=== PATIENT | male | born 1995 | race African-American/Black ===

== ENCOUNTER 2017-12-30 18:41 | Emergency (ER) | payer SELFPAY ==
[2017-12-30 18:58] VITALS: BP 137/84
--- NOTE | 2017-12-30 19:13 | UC ---
Lower Extremity/Ankle HPI - HPI Summary HPI Summary: pt works at [employer]. He came down while playing basketball and felt pain in his R hamstring today. He dropped from pain. He has ongoing pain in his R hamstring. 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 - History of Current Complaint Chief Complaint: UCLowerExtremity Stated Complaint: RIGHT LEG (HAMSTRING) WC Time Seen by Provider: 12/30/17 19:05 Hx Obtained From: Patient Onset/Duration: Sudden Onset Pain Intensity: 9 Aggravating Factor(s): Standing, Ambulation Alleviating Factor(s): Rest Able to Bear Weight: Yes Related History: Occupational Injury - Allergies/Home Medications Allergies/Adverse Reactions: Allergies Allergy/AdvReac Type Severity Reaction Status Date / Time No Known Allergies Allergy Verified 07/15/15 11:26 Home Medications: Home Medications Aspirin/Acetaminophen/Caffeine [Excedrin Extra Strength Caplet] 5 each PO ONCE PRN 12/30/17 [History Confirmed 12/30/17] PMH/Surg Hx/FS Hx/Imm Hx Previously Healthy: Yes - Surgical History Surgical History: Yes Surgery Procedure, Year, and Place: abdominal hernia 1999 - Social History Occupation: Employed Full-time Alcohol Use: Occasionally Alcohol Amount: 10 Substance Use Type: Marijuana Substance Use Comment - Amount & Last Used: 07/14/15 Smoking Status (MU): Never Smoked Tobacco - Immunization History Vaccination Up to Date: Yes Review of Systems Constitutional: Negative Skin: Negative Eyes: Negative ENT: Negative Respiratory: Negative Cardiovascular: Negative Gastrointestinal: Negative Genitourinary: Negative Motor: Negative Neurovascular: Negative Musculoskeletal: Other: - Pain R hamstring Neurological: Negative Psychological: Negative Is Patient Immunocompromised?: No All Other Systems Reviewed And Are Negative: Yes Physical Exam Triage Information Reviewed: Yes Appearance: Well-Appearing Vital Signs: Initial Vital Signs Temp 97.7 F 12/30/17 18:53 Pulse 86 12/30/17 18:53 Resp 22 12/30/17 18:53 BP 137/84 12/30/17 18:53 Pulse Ox 100 12/30/17 18:53 Vital Signs Reviewed: Yes Eyes: Positive: Conjunctiva Clear ENT: Positive: Normal ENT inspection Neck: Positive: Supple, Nontender, No Lymphadenopathy Respiratory: Positive: Lungs clear, Normal breath sounds Cardiovascular: Positive: RRR, No Murmur Abdomen Description: Positive: Nontender, No Organomegaly, Soft Bowel Sounds: Positive: Present Musculoskeletal: Positive: Other: - RLE: Hip non tender. Mild swelling R posterior thigh. Tender to mid hamstring. Knee non tender. Able to flex and extend at the hip and knee. No bony deformity or tenderness. Rest of lower extremity atraumatic with full s/v/m function. Neurological: Positive: Alert Psychological: Positive: Age Appropriate Behavior Skin Exam: Normal Lower Extremity Course/Dx - Course Course Of Treatment: Exam c/w strain R hamstring. Baldev to R thigh by myself with s/v/m intact RLE after. will tx baldev, crutches and nsaid. pt advised over asa over use and to stop this drug. will refer to orthopedics. - Differential Dx/Diagnosis Provider Diagnoses: Strain R hamstring. Discharge - Sign-Out/Discharge Documenting (check all that apply): Discharge/Admit/Transfer - Discharge Plan Condition: Stable Disposition: HOME HEALTH AGENCY Prescriptions: Naproxen [Naprosyn 500 mg tab] 500 mg PO BID PRN #14 tablet PRN Reason: Pain Patient Education Materials: Hamstring Injury (ED) Forms: *Work Release Referrals: Nagi Santos MD [Medical Doctor] - As Soon As Possible Additional Instructions: USE BALDEV AND CRUTCHES UNTIL CLEARED. REMOVE BALDEV AT BEDTIME. - Billing Disposition and Condition Condition: STABLE Disposition: [facility]
== END 2017-12-30 19:26 | disposition home health service (06) ==
LOC: UCCORT 18:41
DX: S76.811A Strain of other specified muscles, fascia and tendons at thigh level, right thigh, initial encounter (principal); X50.0XXA Overexertion from strenuous movement or load, initial encounter; Y93.67 Activity, basketball; Y92.89 Other specified places as the place of occurrence of the external cause; Y99.0 Civilian activity done for income or pay
CPT/HCPCS: 99213; G0463

== ENCOUNTER 2018-06-02 19:19 | Emergency (ER) | payer OTHER ==
[2018-06-02] MEDS ORDERED: Ibuprofen TAB* 600 MG PO ONE (19:31)
--- NOTE | 2018-06-02 19:36 | UC ---
Lower Extremity/Ankle HPI - HPI Summary HPI Summary: Patient was playing basketball with residence at work, another payer came down onto his foot, he is now not able to bear weight, Discreet area of swelling on the proximal/ lateral aspect of right foot. - History of Current Complaint Stated Complaint: RIGHT FOOT INJURY - W/C Time Seen by Provider: 06/02/18 19:31 Hx Obtained From: Patient Onset/Duration: Sudden Onset, Lasting Hours Severity Initially: Moderate Severity Currently: Moderate Aggravating Factor(s): Standing, Ambulation Alleviating Factor(s): Nothing Able to Bear Weight: No Related History: Occupational Injury - Allergies/Home Medications Allergies/Adverse Reactions: Allergies Allergy/AdvReac Type Severity Reaction Status Date / Time No Known Allergies Allergy Verified 01/10/18 09:59 PMH/Surg Hx/FS Hx/Imm Hx Previously Healthy: Yes - Surgical History Surgical History: Yes Surgery Procedure, Year, and Place: abdominal hernia 1999 - Family History Known Family History: Negative: Hypertension - Social History Alcohol Use: Occasionally Alcohol Amount: 10 Substance Use Type: Marijuana Substance Use Comment - Amount & Last Used: 07/14/15 Smoking Status (MU): Never Smoked Tobacco - Immunization History Vaccination Up to Date: Yes Review of Systems Constitutional: Negative Skin: Negative Eyes: Negative ENT: Negative Respiratory: Negative Cardiovascular: Negative Gastrointestinal: Negative Genitourinary: Negative Motor: Negative Neurovascular: Negative Musculoskeletal: Arthralgia, Edema, Myalgia Neurological: Negative Psychological: Negative Is Patient Immunocompromised?: No All Other Systems Reviewed And Are Negative: Yes Physical Exam Triage Information Reviewed: Yes Appearance: Well-Appearing, Well-Nourished, Pain Distress Vital Signs Reviewed: Yes Eye Exam: Normal ENT Exam: Normal Dental Exam: Normal Neck exam: Normal Neck: Positive: Supple, Nontender, No Lymphadenopathy Respiratory Exam: Normal Respiratory: Positive: Chest non-tender, Lungs clear, Normal breath sounds Cardiovascular Exam: Normal Cardiovascular: Positive: RRR, No Murmur, Pulses Normal Abdominal Exam: Normal Musculoskeletal: Positive: Strength Limited @ - in right foot, ROM Limited @ - in roght foot, Edema @ - discreet pocket of edema on top of right foot Neurological Exam: Normal Psychological Exam: Normal Skin Exam: Normal Diagnostics - Radiology No standard instances Radiology Interpretation Completed By: ED Physician - read as negative Lower Extremity Course/Dx - Course Course Of Treatment: hx obtained, exam performed ,meds reviewed, xray obtained read as negative, awaiting official radiology read, javon and post op shoe given, crutches offered - Differential Dx/Diagnosis Differential Diagnosis/HQI/PQRI: Contusion, Dislocation, Fracture (Closed) Provider Diagnoses: contusion. foot pain Discharge - Sign-Out/Discharge Documenting (check all that apply): Patient Departure All imaging exams completed and their final reports reviewed: Yes - Discharge Plan Condition: Stable Disposition: HOME Patient Education Materials: Contusion in Adults (ED) Referrals: No Primary Care Phys,NOPCP [Primary Care Provider] - Additional Instructions: 1. rest, ice, compress and elevated the foot 2. Ice for the next 48 hours. 3. then do warm water soaks daily and work foot Range of motion 4. I am giving you the name of Dr Santos an orthopedic for follow up if you are not improving after a week - Billing Disposition and Condition Condition: STABLE Disposition: Home
[2018-06-02 19:48] VITALS: BP 152/90
--- NOTE | 2018-06-03 08:05 | RAD ---
Indication: Right foot injury. 3 views of the right foot demonstrate no fracture or dislocation. No other bone or joint abnormality is identified. IMPRESSION: No fracture of the right foot is noted. R0 .
== END 2018-06-02 20:05 | disposition home or self-care (01) ==
LOC: UCCORT 19:19
DX: S90.31XA Contusion of right foot, initial encounter (principal); F12.90 Cannabis use, unspecified, uncomplicated; W50.0XXA Accidental hit or strike by another person, initial encounter; Y93.67 Activity, basketball; Y92.9 Unspecified place or not applicable
CPT/HCPCS: 99213; A9270-GY; G0463

== ENCOUNTER 2018-09-18 09:10 | Emergency (ER) | payer SELFPAY ==
[2018-09-18 09:39] VITALS: BP 125/94
--- NOTE | 2018-09-18 10:29 | UC ---
UC General HPI - HPI Summary HPI Summary: Per triage, Swollen and painful area near anus for five days. Patient has been trying warm compresses, hot showers, hydrocortisone, and ibuprofen with temporary relief. Patient is concerned about an abscess or hemorrhoid. Pt has hx of abscesses in same area that normally respond to the above tx. No fever, DM or Hx MRSA. - History of Current Complaint Chief Complaint: UCSkin Stated Complaint: SKIN COMPLAINT Time Seen by Provider: 09/18/18 10:18 Hx Obtained From: Patient Onset/Duration: Gradual Onset Timing: Constant Pain Intensity: 6 Associated Signs & Symptoms: Negative: Abdominal Pain, Fever - Allergy/Home Medications Allergies/Adverse Reactions: Allergies Allergy/AdvReac Type Severity Reaction Status Date / Time No Known Allergies Allergy Verified 09/18/18 09:35 Home Medications: Home Medications Hemorrhoidal OINT* [Preparation H*] 1 applic .SEE ORDER SEE INSTRUCTIONS PRN 01/29 [History Confirmed 09/18/18] Ibuprofen TAB* [Advil TAB*] 400 mg PO Q6H PRN 09/18/18 [History Confirmed ] PMH/Surg Hx/FS Hx/Imm Hx - Additional Past Medical History Additional PMH: abscesses - Surgical History Surgical History: Yes Surgery Procedure, Year, and Place: Abdominal Herniorrhaphy, 1999 - Family History Known Family History: Negative: Hypertension - Social History Occupation: Employed Full-time Alcohol Use: Occasionally Alcohol Amount: 10 Substance Use Type: Marijuana Substance Use Comment - Amount & Last Used: 07/14/15 Smoking Status (MU): Never Smoked Tobacco - Immunization History Vaccination Up to Date: Yes Review of Systems All Other Systems Reviewed And Are Negative: Yes Constitutional: Positive: Negative Eyes: Positive: Negative ENT: Positive: Negative Respiratory: Positive: Negative Cardiovascular: Positive: Negative Gastrointestinal: Positive: Negative Genitourinary: Positive: Negative Motor: Positive: Negative Neurovascular: Positive: Negative Musculoskeletal: Positive: Negative Neurological: Positive: Negative Psychological: Positive: Negative Physical Exam Triage Information Reviewed: Yes Appearance: Well-Appearing Vital Signs: Initial Vital Signs Temp 98.5 F 09/18/18 09:33 Pulse 126 09/18/18 09:33 Resp 18 09/18/18 09:33 BP 125/94 09/18/18 09:33 Pulse Ox 99 09/18/18 09:33 Vital Signs Reviewed: Yes Eyes: Positive: Conjunctiva Clear ENT: Positive: Normal ENT inspection Neck: Positive: Supple, Nontender Respiratory: Positive: Lungs clear Cardiovascular: Positive: RRR Abdomen Description: Positive: Nontender, No Organomegaly, Soft, Other: - No inguinal adenopathy.. Negative: Distended, Guarding Bowel Sounds: Positive: Present Musculoskeletal: Positive: ROM Intact Neurological: Positive: Alert Psychological: Positive: Age Appropriate Behavior Skin Exam: Normal, Other - Depp in L inner buttock just lateral to anus is a 2cm area of tenderness and mild induration. The area is not fluctuant. Course/Dx - Differential Dx - Multi-Symptom Differential Diagnoses: Other - no concewrn for hemorrhoid. area is c/w an infection; however, it is not fluctuant and will not benefit from I &D at this time. will tx with an antibiotic and sitz baths. surgical referal given. [facility] surgery used per pt request because of here he lives. - Diagnoses Provider Diagnosis: Isabelle-rectal abscess Discharge - Sign-Out/Discharge Documenting (check all that apply): Patient Departure All imaging exams completed and their final reports reviewed: No Studies - Discharge Plan Condition: Stable Disposition: HOME Prescriptions: Amoxicillin/Clavulanate TAB* [Augmentin TAB 875*] 875 mg PO BID 10 Days #20 tab Patient Education Materials: Abscess (ED), Sitz Bath (DC) Referrals: Leo Maldonado [Medical Doctor] - 2 Days - Billing Disposition and Condition Condition: STABLE Disposition: Home
== END 2018-09-18 10:39 | disposition home or self-care (01) ==
LOC: UCCORT 09:10
DX: K61.1 Rectal abscess (principal)
CPT/HCPCS: 99212; G0463

== ENCOUNTER 2019-09-03 10:19 | Emergency (ER) | payer SELFPAY | END 2019-09-03 10:33 | disposition left against medical advice (07) | LOC: OHCORT 10:19 | DX: Z02.1 Encounter for pre-employment examination (principal); Z53.21 Procedure and treatment not carried out due to patient leaving prior to being seen by health care provider ==

== ENCOUNTER → 2019-09-03 10:53 | Emergency (ER) | payer SELFPAY | END | disposition home or self-care (01) | LOC: OHCORT 10:53 | DX: Z02.1 Encounter for pre-employment examination (principal) ==